=== PATIENT | male | born 1960 | race African-American/Black ===

== ENCOUNTER 2017-10-23 00:02 | Emergency (ER) | payer OTHER ==
[~2017-10-23] VITALS: Ht 193 cm; Wt 81.6 kg
[~2017-10-23 00:02] MED LIST: CYCLOBENZAPRINE10 MG ORAL; KEFLEX500 MG ORAL; NORCO 10/3251 EA ORAL; NORCO 5-325 TA1 EACH ORAL
[2017-10-23] MEDS ORDERED: TRAMADOL HCL50 MG ORAL (00:05)
[2017-10-23] MEDS ORDERED: GABAPENTIN100 MG ORAL (00:05)
[2017-10-23 00:18] VITALS: BP 159/99
--- NOTE | 2017-10-23 00:23 | Emergency Room Report ---
History of Present Illness General Chief Complaint: Pain Source: Patient Present Illness HPI Is a 57-year-old male with a history of hernia. He presents with chief complaint of hernia pain. Has been there for years and tonight after he picked up some grocery for his friend, he felt a gotten bigger and more painful. He called 911. Denies any trauma. No nausea no vomiting. He said that his doctor was going to prescribe him tramadol but she was concerned. He is asking for prescription for tramadol. No urinary complaint. Allergies: Coded Allergies: No Known Allergies (Unverified , 11/18/13) Patient History Past Medical History: see triage record, old chart reviewed Past Surgical History: other Pertinent Family History: none Social History: Denies: smoking Immunizations: other Reviewed Nursing Documentation: PMH: Agreed; PSxH: Agreed Nursing Documentation-PMH Hx Hypertension: Yes Hx Neurological Problems: Yes - pinched nerve, hernia, sciatica Review of Systems Eye: Denies: eye pain, blurred vision ENT: Denies: ear pain, nose congestion, throat swelling Respiratory: Denies: cough, shortness of breath Cardiovascular: Denies: chest pain, palpitations Gastrointestinal: Denies: abdominal pain, diarrhea, nausea, vomiting Musculoskeletal: Denies: back pain, joint pain Skin: Denies: rash Neurological: Denies: headache, numbness Endocrine: Denies: increased thirst, increased urine Hematologic/Lymphatic: Denies: easy bruising All Other Systems: negative except mentioned in HPI Physical Exam Vital Signs Date Time Temp Pulse Resp B/P (MAP) Pulse Ox O2 Delivery O2 Flow Rate FiO2 10/23/17 00:02 98.0 92 18 172/103 98 Room Air 98.1 vitals with high blood pressure Sp02 EP Interpretation: reviewed, normal General Appearance: well appearing, no apparent distress, alert Head: normocephalic, atraumatic Eyes: bilateral eye PERRL, bilateral eye EOMI ENT: hearing grossly normal, normal pharynx Neck: full range of motion, supple, no meningismus Respiratory: chest non-tender, lungs clear, normal breath sounds Cardiovascular #1: regular rate, rhythm, no murmur Gastrointestinal: normal bowel sounds, non tender, no mass, no organomegaly, no bruit, non-distended, other - Left lower quadrant just above the inguinal area, there is a 4 cm defect with hernia. Easily reducible. Musculoskeletal: back normal, gait/station normal, normal range of motion Psychiatric: mood/affect normal Skin: warm/dry Medical Decision Making Diagnostic Impression: Primary Impression: Hernia, inguinal, left Additional Impression: Hypertension Qualified Codes: I10 - Essential (primary) hypertension ER Course Patient with a inguinal hernia. No evidence of strength relation or incarceration. I suspect he is here because he wants tramadol. We'll discharge home. Last Vital Signs Date Time Temp Pulse Resp B/P (MAP) Pulse Ox O2 Delivery O2 Flow Rate FiO2 10/23/17 00:02 98.0 92 18 172/103 98 Room Air 98.1 Status: unchanged Disposition: HOME, SELF-CARE Condition: Stable Additional Instructions: Follow-up with your doctor in 7 days. You may need a referral to see a surgeon. Take your pain medication. Return if worse. CY HALL M.D. Oct 23, 2017 00:23
[2017-10-23 00:34] VITALS: BP 159/99
== END 2017-10-23 00:50 | disposition home or self-care (01) ==
LOC: EDBD 00:02 → EDUNIT# 00:02 → EMR 00:49
DX: K40.90 Unilateral inguinal hernia, without obstruction or gangrene, not specified as recurrent (principal); I10 Essential (primary) hypertension
CPT/HCPCS: 99283